=== PATIENT | female | born 1995 | race Caucasian/White ===

== ENCOUNTER 2021-02-15 16:17 | Emergency (ER) | payer BC ==
[~2021-02-15] VITALS: Ht 175.3 cm; Wt 135.6 kg
[2021-02-15] MEDS ORDERED: CHILDREN'S ASPI81 M1 PO (16:43)
--- NOTE | 2021-03-13 10:26 | PATH ---
[facility] [address] [place], [place] [address] Signed THIS IS AN ADDENDUM REPORT SPECIMEN(S): A PRODUCTS OF CONCEPTION SPECIMEN SOURCE: A. PRODUCTS OF CONCEPTION CLINICAL HISTORY: Abdominal pain, 16 weeks IUFD, COVID positive mother. O03.9 (complete or unspecified spontaneous without complication) FINAL PATHOLOGIC DIAGNOSIS: Products of conception, vaginal delivery: - Phenotypically male fetus, measuring approximately 16 weeks gestational age. - Intact soto placenta, 89 grams. - membranes: No histopathologic abnormality. - Umbilical cord: Three vessel umbilical cord with no histopathologic abnormality. 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 COMMENT: A portion of the patient's medical records were reviewed. The patient is a 25 year old at 16 weeks 6 days gestation who presented to the emergency department (ED) due to severe lower abdominal cramping and gush of fluid. She spontaneous delivered an intact male fetus and placenta shortly after arrival to the ED. The patient was currently symptomatic for SARS-CoV-2 and tested positive for the virus on 02/11/21. Of note, the patient reportedly did not receive the SARS-CoV-2 vaccine. Grossly, the placental disc parenchyma was diffusely firm with hemorrhagic mottling throughout. 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 The chorionic villi are surrounded by a layer of matrix-type fibrinoid deposition and the syncytiotrophoblasts are necrotic. The majority of the villi are hypovascular or avascular, consistent with early villous infarction with severe compromise to perfusion. Special stains AFB, GMS, gram, and Ramon, and an immunohistochemical CMV stain were all negative for organisms. PATIENT NAME: AMY YEUNG PATHOLOGY DATE OF : [birth year] REPORT #: [id number] PHYSICIAN: YESIKA PATHOLOGY PCP: MO HOPKINS DO REPORT IS CONFIDENTIAL AND NOT TO BE RELEASED WITHOUT AUTHORIZATION [facility] [address] [place] [id number] Signed The above findings are similar to those described in recent publications describing placental infection and intrauterine transmission of SARS-COV-2 (see references). Placental and tissue are both being sent for SARS-CoV-2 PCR analysis and the placental tissue is being sent for SARS-CoV-2 detection by immunohistochemistry; the results of both with be reported in an addendum. As part of [facility]' Quality Improvement Program, this case was reviewed by another member of our pathology staff. REFERENCES: Valentin Drake, Pat I, Jalil AM, Ronald L, Monisha M, Rocael AC. 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 Hum Pathol. 2019Jul 15;109:69-79. doi: 10.1016/j.humpath.2020..004. Epub ahead of print. PMID: 85886370; PMCID: [id number]. Daksha SORTO, Odin Meza, Frank S, Jessica V, Shari C, Do Nathan J, Onur Schafer. Transplacental transmission of SARS-CoV-2 infection. Geri Commun. 2019 14;11(1):3572. doi: 10.1038/q48109-861-66952-5. PMID: 74867637; PMCID: [id number]. Alexys J, Jonathan MA, Dez W, John V, Rickie CHEATHAMJ, Susan RC, Kiya D, Jesse . Intrauterine Transmission of SARS-COV-2 Infection in a . Pediatr Infect Dis J. 2020 Apr;39(9):s299-c021. doi: 10.1097/INF.[id number]. PMID: 90705823. Cecil DA, et al. 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 Arch Pathol Lab Med (2020) 145 (5): 782400. NAL:cml:C2NR MICROSCOPIC EXAMINATION: Histologic sections of all submitted blocks are examined by light microscopy. Immunohistochemical stains for CD68 and CMV as well as special stains AFB, GMS, Gram, and Ramon stains were all performed (with appropriately staining controls) on a payroll representative section of the placental disc and reported in the comment section of the report. These findings, together with the gross examination, support the pathologic diagnosis. PATIENT NAME: AMY YEUNG PATHOLOGY DATE OF : [birth year] REPORT #: [id number] PHYSICIAN: YESIKA PATHOLOGY PCP: MO HOPKINS DO REPORT IS CONFIDENTIAL AND NOT TO BE RELEASED WITHOUT AUTHORIZATION [address] [place], [place] [address] Signed GROSS DESCRIPTION: The specimen, labeled "GLORIA MULLINS," is received in formalin and consists of a markedly macerated fetus with the following measurements: Weight-103 grams Hand length-1.6 cm Foot length-2.0 cm Diggins to rump-12.6 cm Diggins to heel-17.7 cm Head circumference-10.5 cm Chest circumference-10.6 cm Abdominal circumference- 10.2 cm Inner canthal distance-0.9 cm Outer canthal distance- 2.5 cm Nose width-0.8 cm Philtrum length-0.4 cm Anterior and posterior fontanelle measurements cannot be determined due to maceration. The eyelids are unfused and the ears appear normally set. The nose, auditory canals, and anus are probe patent. The external and internal genitalia are phenotypically male. The hard and soft palates are intact. There are five fingers and five toes on each hand and foot. There is an area of disruption on the abdomen (0.9 x 0.5 cm), 0.8 cm superior from the umbilical cord, with protrusion of the small intestine through the muscle wall (previously covered by the skin). A gross photograph is taken and uploaded into [employer]. Internal organs are intact and present within the normal anatomical position. Record Tester sections of the internal organs are in cassette (A1). Attached to the fetus via umbilical cord and placenta with the following parameters: Umbilical cord: Insertion eccentric, measurement 14.3 x 0.5 cm; trivascular. Cord coiling index (per 10 cm): Four. Lesions: Not grossly identified. Membranes: Insertion site: Marginal, jon/translucent, rupture site 2.0 cm from edge of disc. Other: Not grossly identified. Chorionic Plate: Normal radiating vascular pattern, blue-purple and shiny. Lesions: Not grossly identified. Other: Not grossly identified. Maternal Surface: Brown-jon to hemorrhagic and roughened. Lesions: Not grossly identified. Measurement: 10.4 x 7.0 x 3.3 cm. Weight (trimmed): 89 grams. PATIENT NAME: AMY YEUNG PATHOLOGY DATE OF : [birth year] REPORT #: [id number] PHYSICIAN: YESIKA ESCAMILLA PCP: MO HOPKINS DO REPORT IS CONFIDENTIAL AND NOT TO BE RELEASED WITHOUT AUTHORIZATION [facility] [address] [place], [place] [address] Signed Cut Surface: Red-brown, spongy with hemorrhagic mottling throughout the entire placental parenchyma. Basal plate fibrin measures up to 0.2 cm in thickness. Other Findings: Not grossly identified. Record Tester sections are submitted as follows: (A1) Internal organs (A2) Umbilical cord and membranes (A3-A5) Placental parenchyma AC (under the direct supervision of a pathologist) The Gross Description was prepared using a voice recognition system. The report was reviewed for accuracy; however, sound-alike word errors, addition and/or deletions may occur. If there is any question about this report, please contact Client Services. PERFORMING LABORATORY: The technical component was performed by [facility], [address] [place] [id number] (Departmental Secretary: Nancy Latif MD; CLIA# [id number]). [facility], [address] [facility] [address], [place] [address] (CLIA# [id number]). COMMENT: The SARS-CoV Harrison S1 Subunit Protein immunohistochemical stain was performed on a payroll representative section of the placental disc. Please see consultation report for further details ([id number]). REASON FOR ADDENDUM: To add results of additional testing performed at [facility] ([id number]). Products of Conception (A3): Positive for SARS-CoV spike protein by immunohistochemistry. To add results of additional testing performed at [facility] ([id number] and [id number]). Products of conception, SARS coV-2 RNA ddPCR, qualitative (blocks A1 and A3): POSITIVE. SARS-coV-2 RNA was detected in the tissue samples, which included tissue of exclusively internal organs (A1) and placental disc (A3). The results were discussed with Dr. Hopkins on 03/12/21. Please see associated [facility] Reports for further details. Diagnostician: Angela Carl MD Pathologist Electronically Signed 03/13/2021 PATIENT NAME: AMY YEUNG PATHOLOGY DATE OF : [birth year] REPORT #: [id number] PHYSICIAN: YESIKA ESCAMILLA PCP: MO HOPKINS DO REPORT IS CONFIDENTIAL AND NOT TO BE RELEASED WITHOUT AUTHORIZATION [facility] [address] [place], [place] [address] Signed Copies: ~ PATIENT NAME: AMY YEUNG PATHOLOGY DATE OF : [birth year] REPORT #: [id number] PHYSICIAN: YESIKA ESCAMILLA PCP: MO HOPKINS DO REPORT IS CONFIDENTIAL AND NOT TO BE RELEASED WITHOUT AUTHORIZATION
== END 2021-02-15 21:18 | disposition home or self-care (01) ==
LOC: ED 16:17
DX: O03.9 Complete or unspecified spontaneous abortion without complication (principal); U07.1 COVID-19; Z88.2 Allergy status to sulfonamides; Z88.1 Allergy status to other antibiotic agents; Z79.82 Long term (current) use of aspirin
CPT/HCPCS: 96372; 99284

== ENCOUNTER 2021-11-14 07:00 | Day surgery (SDC) | payer BC ==
[~2021-11-14 07:00] MED LIST: CHILDREN'S ASPI81 M1 PO
--- NOTE | 2021-11-14 10:51 | NUR ---
11/14/21 [address] 1035- PT ARRIVES TO PACU AWAKE AND MOVING AROUND IN THE BED. PT TRYING TO GET ON HER LEFT SIDE. RESP EVEN AND UNLABORED. OXYGEN SAT HIGH 90'S TO 100% ON 6L VIA MASK. 1041- HAVING DIFFICULTY OBTAINING A BP PT IS MOVING HER ARM AROUND. PT NEEDING REMINDERS TO HOLD HER ARM STILL. 1047- DR. PARRISH AT THE BEDSIDE TO TALK WITH THE PT. OXYGEN TITRATED OFF.
[2021-11-14] MEDS ORDERED: HYDROCODON-ACE1 EA10 PO (11:28)
[2021-11-14] MEDS ORDERED: IBUPROFEN IB200 MG PO (11:29)
--- NOTE | 2021-11-15 15:06 | PATH ---
[facility] [address] [facility] [place], [place] [address] Signed SPECIMEN(S): A PRODUCTS OF CONCEPTION SPECIMEN SOURCE: A. PRODUCTS OF CONCEPTION CLINICAL HISTORY: Incomplete miscarriage. Suction DC. FINAL PATHOLOGIC DIAGNOSIS: Products of conception, dilation and curettage: - Macerated fetus admixed with immature placental tissue, consistent with products of conception. NAL:cml:C2NR MICROSCOPIC EXAMINATION: Histologic sections of all submitted blocks are examined by light microscopy. These findings, together with the gross examination, support the pathologic diagnosis. GROSS DESCRIPTION: One specimens are received in two containers, labeled "KG." A-1. The specimen, labeled "KG, A," and designated on the requisition "products of conception," is received in formalin and consists of a portion of pink to red-brown soft tissue (8.3 x 0.8 x 2.0 cm in aggregate). Broom Worker sections are submitted in cassette (A1). A-2. The specimen, labeled "KG, A, second container," and designated on the requisition "products of conception," is received in formalin and consists of a markedly macerated fetus (8.5 x 2.5 x 1.5 cm). The specimen has an identifiable hand length of 0.8 cm and a foot length of 1.0 cm. Each hand has five fingers, and each foot has five toes. Broom Worker sections are submitted cassette (A1). AC (under the direct supervision of a pathologist) The Gross Description was prepared using a voice recognition system. The report was reviewed for accuracy; however, sound-alike word errors, addition and/or deletions may occur. If there is any question about this report, please contact Client Services. PERFORMING LABORATORY: The technical component was performed by [facility], Alena Banguragladys González, PATIENT NAME: AMY YEUNG PATHOLOGY DATE OF : [birth year] REPORT #: [id number] PHYSICIAN: YESIKA PATHOLOGY PCP: NO PRIMARY CARE PHYSICIAN REPORT IS CONFIDENTIAL AND NOT TO BE RELEASED WITHOUT AUTHORIZATION [facility] [address] [place], [place] [address] [place] [address] (CLIA# [id number]). Professional interpretation was performed by [facility], [address] [address] (CLIA# [id number]). Diagnostician: Angela Carl MD Pathologist Electronically Signed 11/15/2021 Copies: ~ PATIENT NAME: AMY YEUNG PATHOLOGY DATE OF : [birth year] REPORT #: [id number] PHYSICIAN: YESIKA PATHOLOGY PCP: NO PRIMARY CARE PHYSICIAN REPORT IS CONFIDENTIAL AND NOT TO BE RELEASED WITHOUT AUTHORIZATION
== END 2021-11-14 11:55 | disposition home or self-care (01) ==
LOC: DS 07:00
PROVIDERS: ATTEND Obstetrics & Gynecology
DX: O02.1 Missed abortion (principal); Z67.91 Unspecified blood type, Rh negative; Z3A.13 13 weeks gestation of pregnancy; Z20.822 Contact with and (suspected) exposure to COVID-19
CPT/HCPCS: A9270; J0131; J1100; J1644; J2001; J2210; J2250; J2405; J2704; J3010; J7121